=== PATIENT | female | born 1995 | race American Indian/Alaskan Native ===

== ENCOUNTER 2020-09-26 04:48 | Emergency (ER) | payer SELFPAY ==
--- NOTE | 2020-09-26 05:28 | Event Note ---
ED Screening Note Date of service: 09/26/20 Time: 05:26 ED Screening Note: Patient is 9 weeks ; had an ultrasound done at a [facility] called [facility] few days ago which showed intrauterine ; he has not established with [facility] yet; her last menstrual cycle was July 26 Start with vaginal spotting and cramping this morning. She is G3, P2 AB 0 This initial assessment/diagnostic orders/clinical plan/treatment(s) is/are subject to change based on patients health status, clinical progression and re- assessment by fellow clinical providers in the ED. Further treatment and workup at subsequent clinical providers discretion. Patient/guardian urged not to elope from the ED as their condition may be serious if not clinically assessed and managed. Initial orders include: CBC, CMP, quant hCG, urinalysis, ultrasound and RhoGam work-up
[2020-09-26 06:52] LABS: Basophils # (Auto) 0.1 K/mm3 (0.0-0.1); Basophils % (Auto) 0.9 % (0.0-1.8); Eosinophils # (Auto) 0.1 K/mm3 (0.0-0.4); Eosinophils % (Auto) 1.2 % (0.0-4.3); Hematocrit 36.6 % (30.3-42.9); Hemoglobin 12.5 gm/dl (10.1-14.3); Lymphocytes # (Auto) 1.7 K/mm3 (1.2-5.4); Lymphocytes % (Auto) 18.9 % (13.4-35.0); Mean Corpuscular HGB Conc 34 % (30-34); Mean Corpuscular Volume 92 fl (79-97); Monocytes # (Auto) 0.7 K/mm3 (0.0-0.8); Monocytes % (Auto) 7.5 % (0.0-7.3); Platelet Count 306 K/mm3 (140-440); Red Blood Count 3.97 M/mm3 (3.65-5.03); Red Cell Distribution Width 13.3 % (13.2-15.2)
[2020-09-26 07:02] LABS: Alanine Aminotransferase 22 units/L (7-56); Albumin 3.8 g/dL (3.9-5); BUN/Creatinine Ratio 14; Blood Urea Nitrogen 10 mg/dL (7-17); Calcium 9.3 mg/dL (8.4-10.2); Hemolysis Index 0
--- NOTE | 2020-09-26 07:09 | Ultrasound Report ---
ULTRASOUND OBSTETRIC INDICATION / CLINICAL INFORMATION: 9 weeks; vag bleeding. Clinical Gestational Age (GA) in weeks, days: 8, 4 TECHNIQUE: Transvaginal. COMPARISON: None available. FINDINGS: GESTATIONAL SAC: Well-defined oval shape and intrauterine in location. YOLK SAC: No significant abnormality. EMBRYO/FETUS: No significant abnormality. - [place]-Rump Length = 2.2 cm = 8, 6 weeks, days - Heart Rate, beats per minute (if present) = 186 ADNEXA: No significant abnormality. FREE FLUID: None. ADDITIONAL FINDINGS: Cystic area in the cervix measuring 1.4 x 0.9 x 1.1 cm. IMPRESSION: 1. Single, living intrauterine with estimated sonographic age of 8, 5 weeks, days. 2. 1.4 cm cystic area in the cervix could represent small subchorionic hemorrhage. Close clinical and sonographic follow-up is recommended. Signer Name: Sarah Fletcher MD Signed: 09/26/2020 7:05 AM Workstation Name: [id number]
[2020-09-26 07:20] LABS: Bacteria,Urine 1+ /HPF (Negative); Bilirubin,Urine NEG (Negative); Blood,Urine SM (Negative); Color,Urine Yellow (Yellow); Mucus,Urine FEW /HPF; Protein,Urine <15 mg/dL mg/dL (Negative); RBC,Urine < 1.0 /HPF (0.0-6.0); Urobilinogen,Urine < 2.0 mg/dL (<2.0)
[2020-09-26 08:23] VITALS: BP 123/67
--- NOTE | 2020-09-26 08:38 | Emergency Department Report ---
ED General Adult HPI - General Chief complaint: Vaginal Bleeding Stated complaint: 9WEEKS BLEEDING Time Seen by Provider: 09/26/20 05:26 Source: patient Mode of arrival: Ambulatory Limitations: No Limitations - History of Present Illness Initial comments: This is a 25-year old patient who states she is 9 weeks ; had an ultrasound done at a [facility] called [facility] few days ago which showed intrauterine ; he has not established with [facility] yet; her last menstrual cycle was July 26. She experienced a small amount of vaginal spot ting and cramping this morning. She has not had this with prior pregnancies. She is G3, P2 AB 0 Severity scale (0 -10): 1 - Related Data Allergies Allergy/AdvReac Type Severity Reaction Status Date / Time No Known Allergies Allergy Unverified 09/26/20 05:40 ED Review of Systems ROS: Stated complaint: 9WEEKS BLEEDING Other details as noted in HPI Constitutional: denies: chills, fever Eyes: denies: eye pain, vision change ENT: denies: ear pain, throat pain Respiratory: denies: cough, shortness of breath Cardiovascular: denies: chest pain, palpitations Endocrine: no symptoms reported Gastrointestinal: denies: abdominal pain, nausea, diarrhea Genitourinary: as per HPI Musculoskeletal: joint swelling. denies: back pain, arthralgia Skin: rash (On legs with this ). denies: lesions Neurological: denies: headache, weakness, paresthesias Psychiatric: denies: anxiety, depression Hematological/Lymphatic: denies: easy bleeding, easy bruising ED Past Medical Hx - Past Medical History Previous Medical History?: No - Surgical History Past Surgical History?: No - Social History Smoking Status: Never Smoker ED Physical Exam - General Limitations: Physical Limitation General appearance: obese - Head Head exam: Present: atraumatic, normocephalic - Eye Eye exam: Present: normal appearance. Absent: scleral icterus - ENT ENT exam: Present: mucous membranes moist - Neck Neck exam: Present: normal inspection - Respiratory Respiratory exam: Present: normal lung sounds bilaterally. Absent: respiratory distress - Cardiovascular Cardiovascular Exam: Present: regular rate, normal rhythm. Absent: systolic murmur, diastolic murmur, rubs, gallop - GI/Abdominal GI/Abdominal exam: Present: soft, normal bowel sounds. Absent: distended, tende rness, guarding, rebound - Extremities Exam Extremities exam: Present: full ROM. Absent: calf tenderness - Neurological Exam Neurological exam: Present: alert, oriented X3, CN II-XII intact. Absent: motor sensory deficit - Psychiatric Psychiatric exam: Present: normal affect, normal mood - Skin Skin exam: Present: warm, dry, intact, other (Patient does have some pigmented nodular lesions in the pretibial area of both legs). Absent: rash ED Course Vital Signs 09/26/20 09/26/20 09/26/20 05:25 08:19 08:22 Temperature 98.5 F Pulse Rate 78 77 Respiratory 16 16 16 Rate Blood Pressure 124/68 Blood Pressure 123/67 [Left] O2 Sat by Pulse 100 99 99 Oximetry - Reevaluation(s) Reevaluation #1: Ultrasound report noted. Patient stable for discharge and referral. 09/26/20 08:48 Reevaluation #2: I will defer the patient's evaluation of what I think is erythema nodosum to OB. 09/26/20 08:48 ED Medical Decision Making - Lab Data Result diagrams: 09/26/20 05:48 09/26/20 05:48 Laboratory Results - last 24 hr 09/26/20 09/26/20 09/26/20 05:34 05:48 05:48 WBC 8.9 RBC 3.97 Hgb 12.5 Hct 36.6 MCV 92 MCH 31 MCHC 34 RDW 13.3 Plt Count 306 Lymph % (Auto) 18.9 [place] % (Auto) 7.5 H Eos % (Auto) 1.2 Baso % (Auto) 0.9 Lymph # (Auto) 1.7 [place] # (Auto) 0.7 Eos # (Auto) 0.1 Baso # (Auto) 0.1 Seg Neutrophils % 71.5 H Seg Neutrophils # 6.3 Sodium 135 L Potassium 4.1 Chloride 101.7 Carbon Dioxide 28 Anion Gap 9 BUN 10 Creatinine 0.7 Estimated GFR > 60 BUN/Creatinine Ratio 14 Glucose 88 Calcium 9.3 Total Bilirubin 0.20 AST 16 ALT 22 Alkaline Phosphatase 66 Total Protein 7.3 Albumin 3.8 L Albumin/Globulin Ratio 1.1 HCG, Quant Urine Color Yellow Urine Turbidity Slightly-cloudy Urine pH 5.0 Ur Specific [place] 1.025 Urine Protein <15 mg/dl Urine Glucose (UA) Neg Urine Ketones Neg Urine Blood Sm Urine Nitrite Neg Urine Bilirubin Neg Urine Urobilinogen < 2.0 Ur Leukocyte Esterase Neg Urine WBC (Auto) 1.0 Urine RBC (Auto) < 1.0 U Epithel Cells (Auto) 4.0 Urine Bacteria (Auto) 1+ Urine Mucus Few Blood Type Ord Rhogam Gestat Weeks 09/26/20 09/26/20 05:48 Unknown WBC RBC Hgb Hct MCV MCH MCHC RDW Plt Count Lymph % (Auto) [place] % (Auto) Eos % (Auto) Baso % (Auto) Lymph # (Auto) [place] # (Auto) Eos # (Auto) Baso # (Auto) Seg Neutrophils % Seg Neutrophils # Sodium Potassium Chloride Carbon Dioxide Anion Gap BUN Creatinine Estimated GFR BUN/Creatinine Ratio Glucose Calcium Total Bilirubin AST ALT Alkaline Phosphatase Total Protein Albumin Albumin/Globulin Ratio HCG, Quant 49093 H Urine Color Urine Turbidity Urine pH Ur Specific [place] Urine Protein Urine Glucose (UA) Urine Ketones Urine Blood Urine Nitrite Urine Bilirubin Urine Urobilinogen Ur Leukocyte Esterase Urine WBC (Auto) Urine RBC (Auto) U Epithel Cells (Auto) Urine Bacteria (Auto) Urine Mucus Blood Type O POSITIVE Ord Rhogam Gestat Weeks pos - Radiology Data Radiology results: report reviewed IMPRESSION: 1. Single, living intrauterine with estimated sonographic age of 8, 5 weeks, days. 2. 1.4 cm cystic area in the cervix could represent small subchorionic hemorrhage. Close clinical and sonographic follow-up is recommended. Critical care attestation.: If time is entered above; I have spent that time in minutes in the direct care of this critically ill patient, excluding procedure time. ED Disposition Clinical Impression: Threatened miscarriage, Erythema nodosum Disposition: TO HOME OR SELFCARE Is pt being admited?: No Does the pt Need Aspirin: No Condition: Stable Instructions: Threatened Miscarriage Additional Instructions: Return any acute change or problem. Referrals: WIFLRIDO TURNER MD [Primary Care Provider] - 3-5 Days [facility] [Provider Group] - 3-5 Days Time of Disposition: 08:49
== END 2020-09-26 09:19 | disposition home or self-care (01) ==
LOC: ED 04:48
DX: O20.0 Threatened abortion (principal); O26.891 Other specified pregnancy related conditions, first trimester; L52 Erythema nodosum; Z3A.09 9 weeks gestation of pregnancy
CPT/HCPCS: 36415; 76817; 80053; 81001; 84702; 85025; 86900; 86901